=== PATIENT | male | born 2000 | race Caucasian/White ===

== ENCOUNTER 2018-11-26 14:55 | Emergency (ER) | payer BC, MEDICAID ==
[~2018-11-26] VITALS: Ht 167.6 cm; Wt 73.9 kg
[2018-11-26 15:13] VITALS: BP 142/80
[2018-11-26] MEDS ORDERED: LORAZEPAM 1 MG TABLET PO ONE (15:30)
[2018-11-26] MEDS ORDERED: LORAZEPAM 0.5 MG TABLET ONE (15:39)
== END 2018-11-26 16:32 | disposition home or self-care (01) ==
LOC: ER 14:55
DX: B34.9 Viral infection, unspecified (principal); F41.9 Anxiety disorder, unspecified